=== PATIENT | male | born 1950 | race Caucasian/White ===

== ENCOUNTER 2021-06-20 08:59 | Outpatient (CLI) | payer MEDICARE, OTHER ==
--- NOTE | 2021-06-20 20:07 | Ultrasound Report ---
PROCEDURE: Aorta Screening INDICATIONS: LUNG CA SCREENING, AAA SCREENING TECHNIQUE: Real time scanning was performed of the aorta and iliac arteries, with image documentatio n. COMPARISON: None. FINDINGS: Aorta: Proximal aortic diameter measures 2.6 cm. Mid-aorta measures 2.0 cm. Distal aortic diameter is 1.9 cm. Iliac arteries: Right common iliac artery measures 1.3 cm. Left common iliac artery measures 1.4 cm . IMPRESSION: 1. No evidence of abdominal aortic aneurysm. Reviewed by: Forest Fall MD on 06/20/2021 8:05 PM PST Approved by: Forest Fall MD on 06/20/2021 8:05 PM PST Station ID: [id number]
--- NOTE | 2021-06-21 01:25 | CT Report ---
PROCEDURE: Low Dose Lung Cancer Screen INDICATIONS: LUNG CA SCREENING, AAA SCREENING TECHNIQUE: Noncontrast low-dose images were acquired from the pulmonary apices to the posterior costophrenic ang les. Multiplanar MIP reformats were then acquired. For radiation dose reduction, the following was used: automated exposure control, adjustment of mA and/or kV according to patient size. COMPARISON: None. FINDINGS: Image quality: Excellent. Lungs and pleura: There is a small right middle lobe nodule measuring 0.3 cm on series 4 image 171. There is a small focus of nodular thickening along the left major fissure measuring 0.2 cm on series 4 image 98. No acute consolidation. There is mild subpleural scarring in the lung bases as well as al yu the right major fissure inferiorly. No pleural effusions or pneumothorax. The trachea and central airways appear patent. Mediastinum: Heart size is normal. No pericardial effusion. There is extensive coronary arterial va scular calcification. No mediastinal adenopathy by size criteria. Thoracic aorta and central pulmona ry arteries are normal in size. Esophagus is normal in caliber. No hiatal hernia. Bones and chest wall: No suspicious bony lesions. No vertebral body compression fractures. No axil laurie or supraclavicular adenopathy by size criteria. Abdomen: Visualized upper abdomen solid organs and bowel loops appear normal in the absence of contr ast. IMPRESSION: 1. Small right middle lobe and left fissural nodules measuring up to 0.3 cm. Lung RADS 2: Recommend continued screening CT in 12 months. Reviewed by: Forest Fall MD on 06/21/2021 1:23 AM [facility] Approved by: Forest Fall MD on 06/21/2021 1:23 AM PST Station ID: [id number]
== END 2021-06-20 09:00 | disposition home or self-care (01) ==
LOC: DI 08:59
PROVIDERS: ATTEND Student in an Organized Health Care Education/Training Program
DX: Z12.2 Encounter for screening for malignant neoplasm of respiratory organs (principal); Z13.6 Encounter for screening for cardiovascular disorders; R91.8 Other nonspecific abnormal finding of lung field; F17.210 Nicotine dependence, cigarettes, uncomplicated

== ENCOUNTER 2022-06-17 07:45 | Outpatient (CLI) | payer MEDICARE, OTHER ==
--- NOTE | 2022-06-17 11:13 | CT Report ---
PROCEDURE: Low Dose Lung Cancer Screen INDICATIONS: FORMER SMOKER TECHNIQUE: Noncontrast low-dose axial images were acquired from the pulmonary apices to the posterior costophren ic angles. Multiplanar MIP reformats were then reconstructed. For radiation dose reduction, the follo wing was used: automated exposure control, adjustment of mA and/or kV according to patient size. COMPARISON: 06/20/2021. FINDINGS: Image quality: Excellent. Lungs and pleura: 3 mm groundglass density nodule in right middle lobe medial aspect series 4 image 178, unchanged from prior study 2 mm solid nodule along left major fissure series 4 image 95 unchanged from prior study. No new pulmonary nodule or mass is seen. No pleural effusion or pneumothorax. Central and peripheral airway is patent. Mediastinum: Heart size is normal. No pericardial effusion. Moderate atherosclerotic calcification s in coronary vessels and thoracic aorta are seen. No mediastinal adenopathy by size criteria. Ascend ing thoracic aortic aneurysm measures up to 4.5 cm in largest AP diameter series 3 image 31. Pulmonar y arteries are normal in size. Esophagus is normal in caliber. No hiatal hernia. Bones and chest wall: No suspicious bony lesions. No vertebral body compression fractures. No axil laurie or supraclavicular adenopathy by size criteria. The thyroid is normal in size and there are no incidental findings. Abdomen: Visualized upper abdomen solid organs and bowel loops appear normal in the absence of contr ast. IMPRESSION: 1. Stable bilateral pulmonary nodules as described above. No new pulmonary nodules are seen. No pleur al effusion or pneumothorax. 2. Mild ascending thoracic aortic aneurysm measures up to 4.5 cm in largest AP diameter. Moderate ath erosclerotic disease. Lung RADS category: 2, benign findings. Annual low-dose screening CT chest follow-up is recommended a s long as patient meets the criteria. CLINICAL RECOMMENDATION STATEMENTS: In patients <35 years with an ITN detected on CT, MRI, or extrathyroidal ultrasound, the Committee re commends further evaluation with dedicated thyroid ultrasound if the nodule is "e1 cm and has no susp icious imaging features, and if the patient has normal life expectancy. In patients "e35 years with an ITN detected on CT, MRI, or extrathyroidal ultrasound, the Committee r ecommends further evaluation with dedicated thyroid ultrasound if the nodule is "e1.5 cm and has no s uspicious imaging features, and if the patient has normal life expectancy. (ACR, 2014) Reviewed by: Gary Yap MD on 06/17/2022 11:12 AM PST Approved by: Gary Yap MD on 06/17/2022 11:12 AM PST Station ID: [id number]
== END 2022-06-17 07:46 | disposition home or self-care (01) ==
LOC: DI 07:45
PROVIDERS: ATTEND Student in an Organized Health Care Education/Training Program
DX: Z12.2 Encounter for screening for malignant neoplasm of respiratory organs (principal); R91.8 Other nonspecific abnormal finding of lung field; I71.21 Aneurysm of the ascending aorta, without rupture; I25.10 Atherosclerotic heart disease of native coronary artery without angina pectoris; Z87.891 Personal history of nicotine dependence